=== PATIENT | female | born 1975 | race African-American/Black ===

== ENCOUNTER → 2017-08-04 | Emergency (ER) | payer OTHER ==
[~2017-08-04] VITALS: Ht 180.3 cm; Wt 68.0 kg
[~2017-08-04] MED LIST: KETOROLAC TROME10 MG PO; LISINOPRIL10 MG; NEURONTIN600 MG; NORVASC2.5 MG PO; ORPHENADRINE C100 MG PO; SYNTHROID137 MCG PO; TOPROL XL25 MG PO; ULTRACET PO
== END | disposition home or self-care (01) ==
LOC: ER 09:00
DX: M94.0 Chondrocostal junction syndrome [Tietze] (principal)

== ENCOUNTER 2019-04-10 09:43 | Emergency (ER) | payer OTHER ==
[~2019-04-10] VITALS: Ht 172.7 cm; Wt 93.9 kg
== END 2019-04-10 14:24 | disposition home or self-care (01) ==
LOC: ER 09:43
DX: R10.32 Left lower quadrant pain (principal)

== ENCOUNTER 2020-07-18 10:33 | Emergency (ER) | payer OTHER ==
[~2020-07-18] VITALS: Ht 172.7 cm; Wt 95.3 kg
== END 2020-07-18 15:45 | disposition home or self-care (01) ==
LOC: ER 10:33
DX: N20.0 Calculus of kidney (principal)

== ENCOUNTER 2021-02-12 19:55 | Emergency (ER) | payer OTHER ==
[~2021-02-12] VITALS: Ht 172.7 cm; Wt 97.5 kg
[2021-02-13] MEDS ORDERED: MECLIZINE HCL25 MG PO (00:03)
== END 2021-02-13 00:38 | disposition home or self-care (01) ==
LOC: ER 19:55
DX: R42 Dizziness and giddiness (principal); Z11.52 Encounter for screening for COVID-19

== ENCOUNTER 2022-03-24 10:26 | Emergency (ER) | payer OTHER | END 2022-03-24 18:47 | disposition home or self-care (01) | LOC: ER 10:26 | DX: R10.32 Left lower quadrant pain (principal); N83.202 Unspecified ovarian cyst, left side; K57.90 Diverticulosis of intestine, part unspecified, without perforation or abscess without bleeding; K76.0 Fatty (change of) liver, not elsewhere classified; Z91.011 Allergy to milk products ==

== ENCOUNTER 2022-11-12 15:15 | Emergency (ER) | payer OTHER ==
[~2022-11-12] VITALS: Ht 172.7 cm; Wt 97.5 kg
[~2022-11-12 15:15] MED LIST changes: +MECLIZINE HCL25 MG PO
[2022-11-12] MEDS ORDERED: DICLOFENAC SODI75 MG PO (20:29)
== END 2022-11-12 21:25 | disposition home or self-care (01) ==
LOC: ER 15:15
DX: R10.9 Unspecified abdominal pain (principal); N83.299 Other ovarian cyst, unspecified side; M54.89 Other dorsalgia; Z91.011 Allergy to milk products

== ENCOUNTER 2024-11-05 12:00 | Emergency (ER) | payer OTHER ==
[~2024-11-05] VITALS: Ht 174 cm; Wt 103.0 kg
[~2024-11-05 12:00] MED LIST changes: +CIPRO500 MG PO; +DICLOFENAC SODI75 MG PO; +LEVSIN/SL0.125 MG SL; +METRONIDAZOLE500 MG PO; +OMEPRAZOLE40 MG PO
[2024-11-05] MEDS ORDERED: KETOROLAC TROMETHAMINE 30 MG VIAL ONE (14:11)
[2024-11-05] MEDS ORDERED: CEFTRIAXONE SODIUM 1,000 MG VIAL ONE (14:12)
[2024-11-05] MEDS ORDERED: FAMOTIDINE/PF 20 MG/2 ML VIAL ONE (14:12)
[2024-11-05] MEDS ORDERED: FAMOtidine 10 MG/ML (4ML VIAL) IV ONE (14:15)
[2024-11-05] MEDS ORDERED: CEFTRIAXONE SODIUM 1,000 MG VIAL IV ONE (14:15)
[2024-11-05] MEDS ORDERED: KETOROLAC TROMETHAMINE 30 MG VIAL IV ONE (14:15)
[2024-11-05 15:45] LABS: HEMATOCRIT 43.4 % (36.0-45.00); HEMOGLOBIN 14.7 g/dL (12.0-15.00); MEAN CELL VOLUME 91.9 fL (80.00-100.00); MEAN CORPUSCULAR HEMOGLOBIN 31.1 pg (27.00-32.0); MEAN CORPUSCULAR HGB CONC 33.9 g/dl (32.0-36.0); PLATELET COUNT 302 K/uL (150-450); RED BLOOD COUNT 4.72 M/uL (4.00-6.00); RED CELL DISTRIBUTION WIDTH 13.7 % (11.5-14.5)
[2024-11-05 16:05] LABS: INR 1.07; PARTIAL THROMBOPLASTIN TIME 24.2 SECONDS (22.0-34.0); PROTHROMBIN TIME 11.6 SECONDS (9.0-11.5)
[2024-11-05 16:10] LABS: ALBUMIN 3.7 gm/dL (3.4-5.0); BILIRUBIN TOTAL 0.26 mg/dL (0.3-1.2); CALCIUM 10.9 mg/dL (8.5-10.1); CREATININE SERUM 0.79 mg/dL (0.55-1.02); GFR 76.72; GLOBULINA 4.6 G/DL (2.4-3.5); POTASSIUM 3.32 mEq/L (3.5-5.1); TOTAL PROTEIN 8.3 gm/dL (6.4-8.2)
[2024-11-05] MEDS ORDERED: TAMSULOSIN HCL 0.4 MG CAP PO ONE ×2 (17:00→17:09)
[2024-11-05 17:31] LABS: URINE APPEARANCE Cloudy; URINE BILIRRUBIN Negative (NEGATIVE); URINE BLOOD Negative; URINE COLOR Yellow; URINE GLUCOSE Negative (NEGATIVE); URINE KETONE 15 (NEGATIVE); URINE LEUKOCYTE Trace; URINE NITRATE Negative; URINE PROTEIN Negative (NEGATIVE)
[2024-11-05 17:36] LABS: URINE BACTERIA 163.9 uL (0.0-1933); URINE EPITHELIAL CELLS 10.6 uL (0.0-38.8); URINE RBC 46.9 uL (0.0-20.8); URINE WBC 41.7 uL (0.0-23.2)
[2024-11-05 18:04] LABS: URINE CAST 0.44 uL (0.0-1.40)
[2024-11-05] MEDS ORDERED: ORPHENADRINE CITRATE 100 MG TABLET PO ONE (19:00)
[2024-11-05] MEDS ORDERED: ACETAMINOPHEN WITH CODEINE 1 UDTAB TABLET PO ONE (19:00)
== END 2024-11-05 19:42 | disposition home or self-care (01) ==
LOC: ER 12:01
PROVIDERS: General Practice
DX: N83.202 Unspecified ovarian cyst, left side (principal); K57.30 Diverticulosis of large intestine without perforation or abscess without bleeding; K76.0 Fatty (change of) liver, not elsewhere classified; M62.830 Muscle spasm of back; I10 Essential (primary) hypertension; E03.9 Hypothyroidism, unspecified; M79.7 Fibromyalgia; Z88.8 Allergy status to other drugs, medicaments and biological substances; Z91.011 Allergy to milk products